=== PATIENT | female | born 1965 | race Two or more races ===

== ENCOUNTER 2024-05-02 05:16 | Day surgery (SDC) | payer OTHER ==
[2024-04-14 07:59] VITALS: BP 132/83
[2024-04-14 09:54] LABS: PH,URINE 5.5 (5.0-8.0); URINE APPEARANCE Clear; URINE BILIRRUBIN Negative (NEGATIVE); URINE BLOOD Small; URINE COLOR Yellow; URINE GLUCOSE Negative (NEGATIVE); URINE KETONE Negative (NEGATIVE); URINE LEUKOCYTE Trace; URINE NITRATE Negative; URINE PROTEIN Negative (NEGATIVE); URINE UROBILINOGEN 0.2 E.U./dl
[2024-04-14 09:57] LABS: HEMATOCRIT 39.9 % (36.0-45.00); HEMOGLOBIN 13.7 g/dL (12.0-15.00); MEAN CELL VOLUME 85.6 fL (80.00-100.00); MEAN CORPUSCULAR HEMOGLOBIN 29.4 pg (27.00-32.0); MEAN CORPUSCULAR HGB CONC 34.4 g/dl (32.0-36.0); PLATELET COUNT 287 K/uL (150-450); RED BLOOD COUNT 4.66 M/uL (4.00-6.00)
[2024-04-14 09:59] LABS: URINE BACTERIA 316.9 uL (0.0-1933); URINE EPITHELIAL CELLS 89.2 uL (0.0-38.8); URINE RBC 29.3 uL (0.0-20.8); URINE WBC 16.4 uL (0.0-23.2)
[2024-04-14 10:06] LABS: URINE CAST 0.73 uL (0.0-1.40)
[2024-04-14 10:16] LABS: INR 0.98; PARTIAL THROMBOPLASTIN TIME 29.3 SECONDS (22.0-34.0); PROTHROMBIN TIME 10.7 SECONDS (9.0-11.5)
[2024-04-14 10:48] LABS: BILIRUBIN TOTAL 0.38 mg/dL (0.3-1.2); CALCIUM 9.2 mg/dL (8.5-10.1); CREATININE SERUM 0.48 mg/dL (0.55-1.02); GFR 132.83; GLOBULINA 3.4 G/DL (2.4-3.5); POTASSIUM 3.71 mEq/L (3.5-5.1); TOTAL PROTEIN 7.4 gm/dL (6.4-8.2)
[~2024-05-02] VITALS: Ht 157.5 cm; Wt 73.5 kg
[~2024-05-02 05:16] MED LIST: CYTOMEL5 MCG PO; NORVASC5 MG PO; OXYBUTYNIN CHLO10 MG PO; SYNTHROID200 MCG PO
[2024-05-02] MEDS ORDERED: POVIDONE-IODINE 118 ML BOTT TOP ONE (09:01)
[2024-05-02] MEDS ORDERED: IBU600 MG PO (10:05)
[2024-05-02 12:26] VITALS: O2SAT 100
[2024-05-04 13:00] VITALS: BP 136/77
== END 2024-05-02 11:55 | disposition home or self-care (01) ==
LOC: CIR.AMB 05:16
PROVIDERS: ATTEND Obstetrics & Gynecology Gynecology
DX: N95.0 Postmenopausal bleeding (principal); N84.0 Polyp of corpus uteri